=== PATIENT | female | born 1960 | race Two or more races ===

== ENCOUNTER 2017-05-05 20:03 | Emergency (ER) | payer MEDICARE ==
[~2017-05-05] VITALS: Ht 162.6 cm; Wt 69.4 kg
[~2017-05-05 20:03] MED LIST: CEFD300C37 PO; DOXY100T PO; GUAI600T31 PO; IPRA3AMP NPPB; METF500T PO; MONT10TA9 PO; PRED20TA PO
[2017-05-05 20:52] LABS: BASOPHILS % (AUTO) 1 % (0-1); EOSINOPHILS # (AUTO) 0.49 x10^3/uL (0-0.4); EOSINOPHILS % (AUTO) 4 % (1-7); LYMPHOCYTES # (AUTO) 4.66 x10^3/uL (1-3.4); LYMPHOCYTES % (AUTO) 39 % (22-44); MD NO; MEAN CORPUSCULAR VOLUME 78.8 fL (80-100); MONOCYTES # (AUTO) 0.84 x10^3/uL (0.2-0.8); MONOCYTES % (AUTO) 7 % (2-9); NEUTROPHILS # (AUTO) 5.87 x10^3/uL (1.8-6.8); NEUTROPHILS % (AUTO) 49 % (42-75); PLATELET COUNT 283 x10^3/uL (130-400); RED BLOOD COUNT 5.09 x10^6/uL (3.82-5.3); RED CELL DISTRIBUTION WIDTH 13.7 % (9.6-15.2)
[2017-05-05 21:03] LABS: ALBUMIN 3.8 g/dL (3.4-5.0); ANION GAP 7 mmol/L (5-15); CALCIUM 8.7 mg/dL (8.5-10.1); CHLORIDE 104 mmol/L (98-107)
[2017-05-05 21:08] LABS: CREATININE 0.83 mg/dL (0.55-1.02); TROPONIN I < 0.015 ng/mL (0.000-0.045)
[2017-05-05 22:49] VITALS: BP 122/75
== END 2017-05-06 00:34 | disposition home or self-care (01) ==
LOC: ED 23:52
DX: J32.0 Chronic maxillary sinusitis (principal); G44.219 Episodic tension-type headache, not intractable; E11.9 Type 2 diabetes mellitus without complications; J45.909 Unspecified asthma, uncomplicated
CPT/HCPCS: 36415; 71046; 80048; 82040; 84484; 85025; 93005; 99285

== ENCOUNTER 2017-05-24 19:31 | Emergency (ER) | payer MEDICARE ==
[~2017-05-24] VITALS: Ht 157.5 cm; Wt 67.0 kg
[~2017-05-24 19:31] MED LIST changes: +ALBU18HF INH; +CIPR500T3 PO; +PSEU30TA27 PO
[2017-05-24] MEDS ORDERED: SODIUM CHLORIDE FLUSH 10ML SYR IVF ONE (20:30)
[2017-05-24] MEDS ORDERED: SODIUM CHLORIDE 0.9% 1,000ML IVBOLUS ONE (20:30)
[2017-05-24] MEDS ORDERED: DIPHENHYDRAMINE 50 MG/ML, 1ML IVPush ONE (20:30)
[2017-05-24] MEDS ORDERED: PROCHLORPERAZINE 5 MG/ML, 2ML IVPush ONE (20:30)
[2017-05-24] MEDS ORDERED: ACETAMINOPHEN 500 MG TABLET PO ONE (20:30)
[2017-05-24] MEDS ORDERED: PROCHLORPERAZINE 5 MG/ML, 2ML ONE (20:43)
[2017-05-24] MEDS ORDERED: DIPHENHYDRAMINE 50 MG/ML, 1ML ONE (20:43)
[2017-05-24 21:52] VITALS: BP 130/68
== END 2017-05-24 21:56 | disposition home or self-care (01) ==
LOC: ED 21:22
DX: R51 Headache (principal); Z88.6 Allergy status to analgesic agent; E11.9 Type 2 diabetes mellitus without complications; K21.9 Gastro-esophageal reflux disease without esophagitis; Z79.84 Long term (current) use of oral hypoglycemic drugs; Z79.899 Other long term (current) drug therapy
CPT/HCPCS: 70450; 93005; 96361; 96374; 96375; 99284; J0780; J1200; J7030

== ENCOUNTER 2017-07-13 20:48 | Emergency (ER) | payer MEDICARE ==
[~2017-07-13] VITALS: Ht 160 cm; Wt 69.0 kg
[2017-07-13 21:18] LABS: MICROSCOPIC NOT IND
[2017-07-13 21:34] LABS: BASOPHILS # (AUTO) 0.04 x10^3/uL (0-0.1); BASOPHILS % (AUTO) 1 % (0-1); EOSINOPHILS # (AUTO) 0.81 x10^3/uL (0-0.4); EOSINOPHILS % (AUTO) 9 % (1-7); LYMPHOCYTES # (AUTO) 3.11 x10^3/uL (1-3.4); LYMPHOCYTES % (AUTO) 33 % (22-44); MD NO; MEAN CORPUSCULAR HEMOGLOBIN 26.5 pg (27.0-34.8); MEAN CORPUSCULAR HGB CONC 33.2 g/dL (32.4-35.8); MEAN CORPUSCULAR VOLUME 79.8 fL (80-100); MEAN PLATELET VOLUME 7.9 fL (7.4-10.4); MONOCYTES # (AUTO) 0.78 x10^3/uL (0.2-0.8); MONOCYTES % (AUTO) 8 % (2-9); NEUTROPHILS # (AUTO) 4.75 x10^3/uL (1.8-6.8); NEUTROPHILS % (AUTO) 50 % (42-75); PLATELET COUNT 268 x10^3/uL (130-400); RED BLOOD COUNT 4.82 x10^6/uL (3.82-5.3); RED CELL DISTRIBUTION WIDTH 14.9 % (9.6-15.2)
[2017-07-13 21:46] LABS: ALANINE AMINOTRANSFERASE 21 U/L (12-78); ALBUMIN 3.6 g/dL (3.4-5.0); ANION GAP 7 mmol/L (5-15); CALCIUM 8.7 mg/dL (8.5-10.1); CHLORIDE 107 mmol/L (98-107)
[2017-07-13 21:48] LABS: ALKALINE PHOSPHATASE 76 U/L (45-117); BILIRUBIN,TOTAL 0.2 mg/dL (0.2-1.0)
[2017-07-13 23:45] VITALS: BP 114/62
== END 2017-07-13 23:50 | disposition home or self-care (01) ==
LOC: ED 21:11
DX: R10.11 Right upper quadrant pain (principal); E11.9 Type 2 diabetes mellitus without complications; K21.9 Gastro-esophageal reflux disease without esophagitis
CPT/HCPCS: 36415; 76700; 80053; 81003; 83690; 85025; 99285

== ENCOUNTER → 2020-05-21 | Outpatient (CLI) | payer MEDICARE ==
[~2020-05-21] MED LIST changes: +AZEL137S4 NAS; +BUDE10.2 INH; +CETI10CA PO; +CHOL10003 PO; -CIPR500T3 PO; +CIPR500T4 PO; +GLIP5TAB10 PO; -IPRA3AMP NPPB; +IPRA3AMP30 NPPB; +MEPO100A INJ; +METF500T17 PO; +MONT10TA17 PO; +MONT10TA6 PO; -MONT10TA9 PO; +SERT50TA28 PO
[2020-05-21 10:32] LABS: ANION GAP 6 mmol/L (5-15); CALCIUM 9.1 mg/dL (8.5-10.1); CHLORIDE 104 mmol/L (98-107)
[2020-05-21 10:35] LABS: ALANINE AMINOTRANSFERASE 21 U/L (12-78); ALKALINE PHOSPHATASE 83 U/L (45-117); BILIRUBIN,TOTAL 0.3 mg/dL (0.2-1.0); CREATININE 0.67 mg/dL (0.55-1.02); TOTAL PROTEIN 7.7 g/dL (6.4-8.2)
== END | disposition home or self-care (01) ==
LOC: STAR 08:59
PROVIDERS: ATTEND Otolaryngology
DX: Z01.818 Encounter for other preprocedural examination (principal); J32.2 Chronic ethmoidal sinusitis; J32.1 Chronic frontal sinusitis; J32.0 Chronic maxillary sinusitis; Z20.822 Contact with and (suspected) exposure to COVID-19
CPT/HCPCS: 36415; 80053; 93005; U0003

== ENCOUNTER 2020-05-27 06:36 | Day surgery (SDC) | payer MEDICARE ==
[~2020-05-27] VITALS: Ht 160 cm; Wt 68.0 kg
[2020-05-27] MEDS ORDERED: CHLORHEXIDINE 15 ML UDC ONE (06:55)
[2020-05-27] MEDS ORDERED: CHLORHEXIDINE 15 ML UDC PO ONE (07:00)
[2020-05-27] MEDS ORDERED: LACTATED RINGERS 1,000 ML IV SCH (07:00)
[2020-05-27 07:10] VITALS: BP 124/82
[2020-05-27] MEDS ORDERED: BACITRACIN 50,000 UNIT ONE (07:25)
[2020-05-27] MEDS ORDERED: EPINEPHRINE 1 MG/ML, 1ML ONE (07:25)
[2020-05-27] MEDS ORDERED: OXYMETAZOLINE NASAL SPRAY 0.05%,30ML ONE (07:25)
[2020-05-27] MEDS ORDERED: LIDOCAINE 1%, 20ML ONE (07:25)
[2020-05-27] MEDS ORDERED: EPINEPHRINE TOPICAL SOLN 1 MG/ML, 30ML ONE (07:25)
[2020-05-27] MEDS ORDERED: FLUORESCEIN SODIUM 500 MG/5 ML ONE (07:25)
[2020-05-27] MEDS ORDERED: NEOSPORIN OINT, 15GM ONE (07:26)
[2020-05-27] MEDS ORDERED: MIDAZOLAM 1 MG/ML, 2ML ONE (07:28)
[2020-05-27] MEDS ORDERED: FENTANYL PF 250 MCG/5ML ONE (07:28)
[2020-05-27] MEDS ORDERED: LABETALOL 5MG/ML, 20ML IV PRN (07:30)
[2020-05-27] MEDS ORDERED: HYDROmorphone 1 MG/ML, 1ML INJ IVPush PRN (07:30)
[2020-05-27] MEDS ORDERED: PROMETHAZINE 25 MG/ML, 1ML IVPush PRN (07:30)
[2020-05-27] MEDS ORDERED: HALOPERIDOL 5 MG/ML IV PRN (07:30)
[2020-05-27] MEDS ORDERED: MEPERIDINE/PF 25MG/0.5ML IVPush PRN (07:30)
[2020-05-27] MEDS ORDERED: OXYcodone 5 MG/5 ML ORAL.SOL UDC PO PRN (07:30)
[2020-05-27] MEDS ORDERED: ACETAMINOPHEN 325 MG TABLET PO PRN (07:30)
[2020-05-27] MEDS ORDERED: FENTANYL PF 100 MCG/2ML IV PRN (07:30)
[2020-05-27] MEDS ORDERED: DIPHENHYDRAMINE 50 MG/ML, 1ML IVPush PRN (07:30)
[2020-05-27] MEDS ORDERED: hydrALAzine 20 MG/ML, 1ML IV PRN (07:30)
[2020-05-27] MEDS ORDERED: CIPROFLOXACIN/PMX 400MG/200ML 200 ML ONE (08:05)
[2020-05-27] MEDS ORDERED: DEXAMETHASONE 4 MG/ML, 1ML ONE (09:09)
[2020-05-27] MEDS ORDERED: CEFAZOLIN 1,000 MG ONE (09:09)
[2020-05-27] MEDS ORDERED: SUCCINYLCHOLINE 20 MG/ML, 10ML ONE (09:09)
[2020-05-27] MEDS ORDERED: NEOSTIGMINE 1 MG/ML, 10ML ONE (09:09)
[2020-05-27] MEDS ORDERED: ROCURONIUM 10MG/ML,5ML ONE (09:09)
[2020-05-27] MEDS ORDERED: ONDANSETRON 2MG/ML, 2ML ONE (09:09)
[2020-05-27] MEDS ORDERED: GLYCOPYRROLATE 0.2MG/1ML, 5ML ONE (09:09)
[2020-05-27] MEDS ORDERED: PROPOFOL 10 MG/ML, 20ML ONE (09:09)
== END 2020-05-27 12:05 | disposition home or self-care (01) ==
LOC: OUT 06:36
PROVIDERS: ATTEND Otolaryngology
DX: J32.0 Chronic maxillary sinusitis (principal); J32.1 Chronic frontal sinusitis; J32.2 Chronic ethmoidal sinusitis; H92.03 Otalgia, bilateral; J45.909 Unspecified asthma, uncomplicated; E11.9 Type 2 diabetes mellitus without complications; Z88.2 Allergy status to sulfonamides; Z88.8 Allergy status to other drugs, medicaments and biological substances; Z79.899 Other long term (current) drug therapy; Z98.890 Other specified postprocedural states
CPT/HCPCS: 31253; 31259; 31267; 82962; 87015; 87070; 87075; 87116; 87147; 87205; 87206; 88304; J0171; J0330; J0690; J0744; J1100; J2250; J2405; J2704; J3010; J7120; J7402; J2710